=== PATIENT | male | born 1975 | race African-American/Black ===

== ENCOUNTER 2019-09-22 10:36 | Emergency (ER) | payer OTHER, SELFPAY ==
[2019-09-22] MEDS ORDERED: Mag-Al Plus 1200 MG/1200 MG/120 MG/30 ML UDCUP ONE (11:16)
[2019-09-22] MEDS ORDERED: Ondansetron ODT 4 MG TAB ONE (11:16)
== END 2019-09-22 11:40 | disposition home or self-care (01) ==
LOC: NAV ERS 10:36
DX: K21.9 Gastro-esophageal reflux disease without esophagitis (principal); J02.9 Acute pharyngitis, unspecified; I10 Essential (primary) hypertension; F17.210 Nicotine dependence, cigarettes, uncomplicated; Z79.899 Other long term (current) drug therapy
CPT/HCPCS: 99283; Q0162

== ENCOUNTER 2021-05-18 22:29 | Emergency (ER) | payer OTHER ==
[2021-05-18] MEDS ORDERED: cefTRIAXone\\ROCEPHIN 1 GM VIAL ONE (23:56)
[2021-05-19 00:10] LABS: Bilirubin Negative (Negative); Blood, Urine Small (Negative); Clarity Clear (Clear); Glucose, Urine (Dipstick) Negative (Negative); Ketone, Urine Negative (Negative); Leukocyte Small (Negative); Nitrite Negative (Negative); Protein, Urine (Dipstick) 30 mg/dL (Neg-Trace); Urobilinogen 0.2 mg/dL (Less than 2); pH, Urine 5.5 (5.0-9.0)
[2021-05-19 00:26] LABS: Bacteria/HPF 2+ HPF (None Seen); RBC/HPF 21-50 HPF (0-3); Squamous Epithelial 0-3 HPF (0-3); Trichomonas/HPF 1+ HPF (None Seen); WBC/HPF 21-50 HPF (0-3)
[2021-05-20 21:16] LABS: GC by PCR Not Detected (NotDetected)
[2021-05-20 21:17] LABS: Chlamydia by PCR Not Detected (NotDetected)
== END 2021-05-19 00:38 | disposition home or self-care (01) ==
LOC: NAV ERS 22:29
DX: Z20.2 Contact with and (suspected) exposure to infections with a predominantly sexual mode of transmission (principal); A59.03 Trichomonal cystitis and urethritis; H65.92 Unspecified nonsuppurative otitis media, left ear; I10 Essential (primary) hypertension; F17.210 Nicotine dependence, cigarettes, uncomplicated
CPT/HCPCS: 81003; 81015; 87491; 87591; 96372; 99283; J0696

== ENCOUNTER 2021-06-12 16:38 | Emergency (ER) | payer OTHER ==
[2021-06-12] MEDS ORDERED: Ketorolac Tromethamine 60 MG/2 ML VIAL ONE (18:02)
[2021-06-13 23:51] LABS: SARS-CoV-2 PCR by NAA DETECTED (NotDetected)
== END 2021-06-12 18:36 | disposition home or self-care (01) ==
LOC: NAV ERS 16:38
DX: U07.1 COVID-19 (principal); G89.29 Other chronic pain; M54.5 Low back pain; I10 Essential (primary) hypertension; F17.210 Nicotine dependence, cigarettes, uncomplicated
CPT/HCPCS: 96372; 99283; J1885; U0003; U0005

== ENCOUNTER 2021-12-31 09:31 | Emergency (ER) | payer OTHER | END 2021-12-31 10:19 | disposition home or self-care (01) | LOC: NAV ERS 09:31 | DX: M54.50 Low back pain, unspecified (principal); G89.29 Other chronic pain; I10 Essential (primary) hypertension; F17.210 Nicotine dependence, cigarettes, uncomplicated | CPT/HCPCS: 99283 ==

== ENCOUNTER 2024-08-07 16:49 | Emergency (ER) | payer OTHER ==
[2024-08-07] MEDS ORDERED: Sulfameth/Trimethoprim DS 800-160mg TAB ONE (17:28)
[2024-08-07] MEDS ORDERED: Ketorolac Tromethamine 60 MG/2 ML VIAL ONE (17:28)
== END 2024-08-07 17:50 | disposition home or self-care (01) ==
LOC: NAV ERS 16:49
DX: L02.31 Cutaneous abscess of buttock (principal); F17.210 Nicotine dependence, cigarettes, uncomplicated
CPT/HCPCS: 96372; 99282; J1885